=== PATIENT | female | born 1980 | race African-American/Black ===

== ENCOUNTER 2022-06-02 09:55 | Emergency (ER) | payer MEDICAID ==
[~2022-06-02] VITALS: Ht 160 cm; Wt 145.0 kg
[2022-06-02 09:59] VITALS: BP 173/86
[2022-06-02] MEDS ORDERED: PHEN1CAP86 MT (11:50)
== END 2022-06-02 12:29 | disposition home or self-care (01) ==
LOC: ER 10:11
DX: J06.9 Acute upper respiratory infection, unspecified (principal); Z98.890 Other specified postprocedural states; Z20.822 Contact with and (suspected) exposure to COVID-19
CPT/HCPCS: 87426; 87804; 99283; C9803

== ENCOUNTER 2022-06-15 23:31 | Emergency (ER) | payer MEDICAID ==
[~2022-06-15] VITALS: Ht 160 cm; Wt 141.0 kg
[~2022-06-15 23:31] MED LIST: PHEN1CAP86 MT
[2022-06-15 23:40] VITALS: BP 188/115
[2022-06-16 00:52] LABS: BASOPHILS % 0.7 % (0.0-2.0); EOSINOPHILS % 2.1 % (0.0-5.0); HEMATOCRIT. 34.1 % (36.0-48.0); HEMOGLOBIN. 10.4 g/dL (12.0-16.0); LYMPHOCYTES % 37.4 % (20.0-50.0); MEAN CORPUSCULAR HEMOGLOBIN 21.2 pg (28.0-32.0); MEAN CORPUSCULAR VOLUME 69.5 fL (81.0-99.0); MEAN PLATELET VOLUME 7.8 fl (7.4-10.4); MONOCYTES % 6.9 % (2.0-8.0); NEUTROPHILS % 52.9 % (40.0-76.0); PLATELET 319 x1000/uL (130-400); RED CELL DISTRIBUTION WIDTH 20.4 % (11.6-14.6)
[2022-06-16 00:58] LABS: CHLORIDE 103 mEq/L (98-107)
[2022-06-16 01:44] LABS: INR 0.9; PARTIAL THROMBOPLASTIN TIME 29.6 sec (23.4-31.0); PROTHROMBIN TIME 9.9 sec (9.6-11.0)
[2022-06-16 02:18] LABS: PLATELET ESTIMATE NORMAL
[2022-06-16] MEDS ORDERED: IBUP-2029 MT (04:36)
[2022-06-16] MEDS ORDERED: GABA300C MT (04:36)
== END 2022-06-16 05:16 | disposition home or self-care (01) ==
LOC: ER 23:31
DX: R07.89 Other chest pain (principal); M79.2 Neuralgia and neuritis, unspecified; M79.602 Pain in left arm
CPT/HCPCS: 36415; 71045; 80053; 81025; 83880; 84484; 85025; 93005; 99285

== ENCOUNTER 2025-02-10 12:05 | Inpatient (IN) | payer MEDICAID, OTHER ==
[~2025-02-10] VITALS: Ht 160 cm; Wt 130.6 kg
[~2025-02-10 12:05] MED LIST changes: +GABA300C MT; +IBUP-1455 MT
[2025-02-10 12:12] VITALS: O2SAT 100
[2025-02-10] MEDS: SODIUM CHLORIDE 0.9% 1,000 ML IV ONE (13:49)
[2025-02-10] MEDS: MECLIZINE 25MG TABLET PO ONE (13:49)
[2025-02-10 14:01] LABS: BASOPHILS % 0.8 % (0.0-2.0); EOSINOPHILS % 1.6 % (0.0-5.0); HEMATOCRIT. 37.2 % (36.0-48.0); HEMOGLOBIN. 11.5 g/dL (12.0-16.0); LYMPHOCYTES % 41.6 % (20.0-50.0); MEAN PLATELET VOLUME 8.2 fl (7.4-10.4); MONOCYTES % 5.5 % (2.0-8.0); NEUTROPHILS % 50.5 % (40.0-76.0); PLATELET 276 x1000/uL (130-400); RED BLOOD CELL COUNT 4.99 mill/uL (4.2-5.4); RED CELL DISTRIBUTION WIDTH 17.7 % (11.6-14.6)
[2025-02-10 14:19] LABS: CREATININE 0.8 mg/dL (0.6-1.0)
[2025-02-10 14:20] LABS: UREA NITROGEN BLOOD 8 mg/dL (9-23)
[2025-02-10 14:21] LABS: TROPONIN I HIGH SENSITIVITY < 4 ng/L (3.0-34)
[2025-02-10] MEDS ORDERED: POTASSIUM CHLORIDE 20MEQ TABLET SR PO ONE (15:15)
[2025-02-10] MEDS: KCL 20MEQ/100ML PREMIX 100 ML IV ONE (18:19)
[2025-02-10 20:00] VITALS: BP 131/67; PULSE 88; TEMP 37.2
[2025-02-10] MEDS: ATORVASTATIN CALCIUM 40MG TABLET PO SCH (22:02)
[2025-02-10] MEDS: MECLIZINE 25MG TABLET PO SCH (22:02)
[2025-02-10 23:52] VITALS: BP 116/61; PULSE 72; RESP 18; TEMP 36.4736
[2025-02-11] VITALS (7 sets, daily range): BP systolic 112–141; BP diastolic 64–90; PULSE 66–82; TEMP 36–36.8; O2SAT 18
[2025-02-11] MEDS ORDERED: FERR324T4 MT (01:30)
[2025-02-11] MEDS ORDERED: SEMA1PEN5 (01:30)
[2025-02-11] MEDS ORDERED: ERGO1250 (01:30)
[2025-02-11] MEDS ORDERED: AMLO10TA80 MT (01:30)
[2025-02-11] MEDS: GABAPENTIN 300MG CAPSULE PO SCH (10:07)
[2025-02-11] MEDS: ASPIRIN 81MG TABLET PO SCH (11:50)
[2025-02-11 20:16] LABS: COLOR URINE YELLOW (YELLOW); GLUCOSE URINE NEGATIVE (NEGATIVE); KETONES URINE NEGATIVE (NEGATIVE); LEUKOCYTE ESTERASE URINE NEGATIVE (NEGATIVE); NITRITE URINE POSITIVE (NEGATIVE); OCCULT BLOOD URINE NEGATIVE (NEGATIVE); PH URINE 6.0 (4.5-8.0); PROTEIN URINE NEGATIVE (NEGATIVE); SPECIFIC GRAVITY URINE 1.016 (1.005-1.030); UROBILINOGEN URINE 0.2 E.U./dL (0.2-1.0)
[2025-02-11 20:30] LABS: *AMPHETAMINES SCREEN URINE NEGATIVE (NEGATIVE); *BARBITURATES SCREEN URINE NEGATIVE (NEGATIVE); *BENZODIAZEPINES SCREEN URINE NEGATIVE (NEGATIVE); *COCAINE SCREEN URINE NEGATIVE (NEGATIVE); CANNABINOID URINE SCREEN NEGATIVE (NEGATIVE); ECSTASY MDMA SCREEN URINE NEGATIVE (NEGATIVE); METHADONE URINE SCREEN NEGATIVE (NEGATIVE); OPIATES URINE SCREEN NEGATIVE (NEGATIVE); PHENCYCLIDINE URINE SCREEN NEGATIVE (NEGATIVE)
[2025-02-11 21:30] LABS: CLARITY URINE SL HAZY (CLEAR)
[2025-02-11 21:31] LABS: BACTERIA URINE TRACE; RBC URINE NONE SEEN /hpf (0-2); SQUAMOUS EPITHELIAL CELL URINE RARE /lpf (RARE/1+); WBC URINE 0-2 /hpf (0-2)
[2025-02-12] VITALS: BP 117/78; PULSE 71; RESP 18; TEMP 36.4
[2025-02-12 04:00] VITALS: BP 117/62; PULSE 65; RESP 18; TEMP 36.5
[2025-02-12 08:00] VITALS: BP 124/75; PULSE 67; RESP 20; TEMP 36.4; O2SAT 100
[2025-02-12 12:00] VITALS: BP 136/70; PULSE 66; RESP 20; TEMP 36.2; O2SAT 100
[2025-02-12] MEDS: LEVOFLOXACIN 250MG TABLET PO SCH (12:46)
[2025-02-12 16:00] VITALS: BP 140/76; PULSE 75; RESP 20; TEMP 36.2; O2SAT 100
[2025-02-12 20:00] VITALS: BP 124/70; PULSE 77; RESP 16; TEMP 36.4; O2SAT 100
[2025-02-13] VITALS: BP 131/90; PULSE 91; RESP 19; TEMP 36.4; O2SAT 100
[2025-02-13 04:00] VITALS: BP 143/81; PULSE 73; RESP 16; TEMP 36.3; O2SAT 100
[2025-02-13 08:00] VITALS: BP 140/90; PULSE 81; RESP 18; TEMP 36.6; O2SAT 100
[2025-02-13 12:00] VITALS: BP 133/70; PULSE 77; RESP 19; TEMP 36.5; O2SAT 100
[2025-02-13 16:00] VITALS: BP 122/75; PULSE 81; RESP 18; TEMP 36.6; O2SAT 100
[2025-02-13] MEDS ORDERED: LEVO750T68 MT (18:22)
[2025-02-13 18:33] VITALS: BP 122/75; PULSE 81; RESP 19; TEMP 97.9
== END 2025-02-13 18:48 | disposition home or self-care (01) | DRG 48 ==
LOC: ER 12:05 → 6EST 15:29 → EDBEDREQ 16:04 → EDBEDREQSVC 16:04 → EDBEDREQTM 16:04
PROVIDERS: ADMIT Internal Medicine; ATTEND Internal Medicine
DX: G90.89 Other disorders of autonomic nervous system (principal); Z68.43 Body mass index [BMI] 50.0-59.9, adult; N39.0 Urinary tract infection, site not specified; I10 Essential (primary) hypertension; E66.01 Morbid (severe) obesity due to excess calories; E87.6 Hypokalemia; Z79.899 Other long term (current) drug therapy; Z98.891 History of uterine scar from previous surgery; Z71.3 Dietary counseling and surveillance
CPT/HCPCS: 36415; 70551; 80048; 80305; 81003; 84484; 85025; 93005; 99285; J3480; J7030; J8597